=== PATIENT | male | born 1985 | race Caucasian/White ===

== ENCOUNTER 2017-11-10 02:58 | Outpatient (CLI) | payer MEDICARE, MEDICAID | END 2017-11-10 23:59 | disposition home or self-care (01) | LOC: DIABETIC 02:58 | PROVIDERS: ATTEND Registered Nurse | DX: R63.5 Abnormal weight gain (principal); E78.5 Hyperlipidemia, unspecified; R73.9 Hyperglycemia, unspecified; I10 Essential (primary) hypertension; R53.83 Other fatigue; E55.9 Vitamin D deficiency, unspecified; F20.0 Paranoid schizophrenia; F41.9 Anxiety disorder, unspecified; Z68.41 Body mass index [BMI] 40.0-44.9, adult; Z72.0 Tobacco use | CPT/HCPCS: 97802 ==

== ENCOUNTER 2017-12-27 01:52 | Outpatient (CLI) | payer MEDICARE, MEDICAID | END 2017-12-27 23:59 | disposition home or self-care (01) | LOC: DIABETIC 01:52 | PROVIDERS: ATTEND Registered Nurse | DX: R63.5 Abnormal weight gain (principal); F41.9 Anxiety disorder, unspecified; E78.5 Hyperlipidemia, unspecified; R73.9 Hyperglycemia, unspecified; I10 Essential (primary) hypertension; R53.83 Other fatigue; E55.9 Vitamin D deficiency, unspecified; F20.0 Paranoid schizophrenia; E66.9 Obesity, unspecified; Z72.0 Tobacco use; Z68.41 Body mass index [BMI] 40.0-44.9, adult | CPT/HCPCS: 97802 ==

== ENCOUNTER 2018-02-14 04:38 | Outpatient (CLI) | payer MEDICARE, MEDICAID | END 2018-02-14 23:59 | disposition home or self-care (01) | LOC: DIABETIC 04:38 | PROVIDERS: ATTEND Registered Nurse | DX: Z71.3 Dietary counseling and surveillance (principal); R63.5 Abnormal weight gain; Z68.41 Body mass index [BMI] 40.0-44.9, adult; I10 Essential (primary) hypertension | CPT/HCPCS: 97802 ==

== ENCOUNTER 2018-05-24 01:40 | Outpatient (CLI) | payer MEDICARE, MEDICAID | END 2018-05-24 23:59 | disposition home or self-care (01) | LOC: DIABETIC 01:40 | PROVIDERS: ATTEND Registered Nurse | DX: R63.5 Abnormal weight gain (principal); Z68.41 Body mass index [BMI] 40.0-44.9, adult; Z71.3 Dietary counseling and surveillance; R73.9 Hyperglycemia, unspecified; Z72.0 Tobacco use; I10 Essential (primary) hypertension | CPT/HCPCS: 97802 ==